=== PATIENT | female | born 1980 | race Caucasian/White ===

== ENCOUNTER 2018-12-13 20:27 | Emergency (ER) | payer MEDICAID ==
[~2018-12-13] VITALS: Ht 157.5 cm; Wt 62.6 kg
[2018-12-13 20:32] VITALS: BP 107/77
--- NOTE | 2018-12-13 20:40 | NUR ---
PT AMBULATED TO LOBBY. PROVIDING URINE.
--- NOTE | 2018-12-13 20:57 | NUR ---
PT AMBULATED TO BED 8 WITH FAMILY/FRIEND
--- NOTE | 2018-12-13 21:05 | NUR ---
37 y/o f presented to ED with c/o vaginal pain x 7 days. AAO x4. Per pt " had a little white discharge and it had a smell". Took advil and was not effective. labia swollen and tender to touch. denies hematuria and flank pain. ERMD notfied. will continue to [facility].
--- NOTE | 2018-12-13 21:18 | NUR ---
Note jean pierreone in EDM - 12/13/18 at 2122 by [email or web address] Patient discharged with v/s stable. Written and verbal after care instructions given and explained. Patient alert, oriented and verbalized understanding of instructions. Ambulatory with steady gait. All questions addressed prior to discharge. ID band removed. Patient advised to follow up with PMD. Rx of IBUPROFEN WAS given. Patient educated on indication of medication including possible reaction and side effects. Opportunity to ask questions provided and answered.
[2018-12-13] MEDS ORDERED: KETOROLAC 30 MG/ML VIAL ONE (21:28)
[2018-12-13] MEDS ORDERED: KETOROLAC 30 MG/ML VIAL IM SCH (21:30)
[2018-12-13 22:00] VITALS: BP 101/62
--- NOTE | 2018-12-13 22:01 | NUR ---
Patient discharged with v/s stable. Written and verbal after care instructions given and explained. Patient alert, oriented and verbalized understanding of instructions. Ambulatory with steady gait. All questions addressed prior to discharge. ID band removed. Patient advised to follow up with PMD. Rx of BACTRIM, IBUPROFEN, KEFLEX, NORCO given. Patient educated on indication of medication including possible reaction and side effects. Opportunity to ask questions provided and answered.
== END 2018-12-13 22:00 | disposition home or self-care (01) ==
LOC: MED 20:27
DX: N75.0 Cyst of Bartholin's gland (principal)
CPT/HCPCS: 96372; 99283; J1885

== ENCOUNTER 2018-12-16 22:49 | Emergency (ER) | payer MEDICAID ==
[~2018-12-16] VITALS: Ht 157.5 cm; Wt 62.6 kg
[2018-12-16 23:05] VITALS: BP 107/65
--- NOTE | 2018-12-16 23:10 | NUR ---
AMBULATED TO LOBBY. ACCOMPANIED BY FAMILY.
--- NOTE | 2018-12-17 00:30 | NUR ---
PT AMBULATED TO ER BED 4, ACCOMPANIED WITH FAMILY
--- NOTE | 2018-12-17 00:41 | NUR ---
PT TO ED WITH C/O PAIN TO RT LABIA UPON WALKING. PT SEEN IN ED AND DX BARTHOLINS CYST/ABCESS. PT DENIES ANY DISCHARGE OR DRAINAGE TO AREA. PT PLACED INTO BED, PENDING MD BALLESTEROS.
[2018-12-17] MEDS ORDERED: MORPHINE SULFATE 4 MG/ML SYR IM ONE (02:45)
[2018-12-17] MEDS ORDERED: LIDOCAINE/EPI 1% 1:100000 20 ML VIAL INJ ONE (02:45)
--- NOTE | 2018-12-17 04:25 | NUR ---
Patient discharged with v/s stable. Written and verbal after care instructions given and explained. Patient alert, oriented and verbalized understanding of instructions. Ambulatory with steady gait. All questions addressed prior to discharge. ID band removed. Patient advised to follow up with PMD. Rx of CLINDAMYCIN given. Patient educated on indication of medication including possible reaction and side effects. Opportunity to ask questions provided and answered.
[2018-12-17 04:28] VITALS: BP 112/81
== END 2018-12-17 04:25 | disposition home or self-care (01) ==
LOC: MED 22:49
DX: N75.1 Abscess of Bartholin's gland (principal)
CPT/HCPCS: 56420; 81025; 96372; 99283; J2001; J2270